=== PATIENT | female | born 1935 | race Caucasian/White ===

== ENCOUNTER 2019-03-19 15:02 | Emergency (ER) | payer MEDICARE ==
[~2019-03-19] VITALS: Ht 172.7 cm; Wt 70.8 kg
[2019-03-19] MEDS ORDERED: LITE COAT ASPI325 MG PO (15:12)
[2019-03-19] MEDS ORDERED: NORCO 5-325 TA1 EACH PO (16:38)
== END 2019-03-19 17:20 | disposition home or self-care (01) ==
LOC: ED 15:02
DX: S42.211A Unspecified displaced fracture of surgical neck of right humerus, initial encounter for closed fracture (principal); S00.81XA Abrasion of other part of head, initial encounter; W22.8XXA Striking against or struck by other objects, initial encounter; Z88.0 Allergy status to penicillin; Z88.1 Allergy status to other antibiotic agents; Z79.82 Long term (current) use of aspirin
CPT/HCPCS: 70450; 73030; 96372; 99284-25; J1170